=== PATIENT | male | born 1995 | race African-American/Black ===

== ENCOUNTER 2020-12-02 23:01 | Emergency (ER) | payer OTHER ==
[~2020-12-02] VITALS: Ht 165.1 cm; Wt 61.2 kg
[2020-12-02 23:38] LABS: AMP/METHAMP Negative (Negative); BARBITURATES Negative (Negative); BENZODIAZEPINES Negative (Negative); COCAINE POSITIVE (Negative); METHADONE Negative (Negative); OPIATES Negative (Negative); PCP Negative (Negative); THC POSITIVE (Negative)
[2020-12-03 00:40] VITALS: BP 164/94
== END 2020-12-03 00:40 | disposition home or self-care (01) ==
LOC: M.ERS 23:01
PROVIDERS: Personal Emergency Response Attendant
DX: S00.86XA Insect bite (nonvenomous) of other part of head, initial encounter (principal); S80.861A Insect bite (nonvenomous), right lower leg, initial encounter; R42 Dizziness and giddiness; F41.9 Anxiety disorder, unspecified; W57.XXXA Bitten or stung by nonvenomous insect and other nonvenomous arthropods, initial encounter; Y93.89 Activity, other specified; Y92.89 Other specified places as the place of occurrence of the external cause; Y99.8 Other external cause status